=== PATIENT | female | born 1985 | race Two or more races ===

== ENCOUNTER 2019-11-06 02:21 | Inpatient (IN) | payer OTHER ==
[~2019-11-06] VITALS: Ht 152.4 cm; Wt 85.3 kg
[2019-11-06] MEDS ORDERED: PRENATAL TABLE1 EAC1 PO (02:54)
== END 2019-11-09 14:58 | disposition home or self-care (01) | DRG 807 ==
LOC: LDR 02:21 → OB/GYN 02:21
PROVIDERS: ADMIT Obstetrics & Gynecology; ATTEND Obstetrics & Gynecology
PROC: 10E0XZZ Delivery of Products of Conception, External Approach (ICD-10-PCS; principal; 2019-11-06)
PROC: 0KQM0ZZ Repair Perineum Muscle, Open Approach (ICD-10-PCS; 2019-11-06)
PROC: 4A1HXFZ Monitoring of Products of Conception, Cardiac Rhythm, External Approach (ICD-10-PCS; 2019-11-06)
PROC: 3E033VJ Introduction of Other Hormone into Peripheral Vein, Percutaneous Approach (ICD-10-PCS; 2019-11-06)
DX: O99.824 Streptococcus B carrier state complicating childbirth (principal); Z37.0 Single live birth; O70.1 Second degree perineal laceration during delivery; O99.284 Endocrine, nutritional and metabolic diseases complicating childbirth; E03.9 Hypothyroidism, unspecified; Z3A.39 39 weeks gestation of pregnancy